=== PATIENT | male | born 1950 | race Hispanic/Latino ===

== ENCOUNTER → 2024-12-19 | Outpatient (CLI) | payer OTHER ==
[~2024-12-19] MED LIST: IOHEXOL 350 MG/ML 100ML INFUS..BTL IV ONE
--- NOTE | 2024-12-21 15:13 | CARDIOLOGY ---
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 A dedicated, limited window, coronary imaging protocol was used, with single breath-hold, retrospective ECG gating, and automated arrhythmia rejection. 100 cc of low osmolar contrast agent: Omnipaque 350 was delivered via a 18-gauge IV catheter in the right antecubital fossa, using a power injector and followed by 60 cc of normal saline bolus as a chaser. Collimated images were reformatted at 0.5 mm intervals, and sent to an offline independent workstation for interpretation, using 3D anatomic reconstructions: Curved multiplanar reconstructions, maximum intensity projections, and multiplanar imaging. No metoprolol was administered prior to scanning due to low baseline heart rate. 0.8 mg SL nitroglycerin was given. CORONARY ARTERY DESCRIPTIONS: The coronary arteries arise in normal position. Left main coronary artery: Normal caliber vessel that bifurcates into the LAD and LCx. No stenosis. Left anterior descending coronary artery: Normal caliber vessel and gives rise to diagonal and septal branches. There is calcified plaque in the proximal LAD with 20-30% stenosis. Left circumflex coronary artery: Normal caliber, nondominant and gives rise to a large OM branch. There is calcified plaque in the proximal LCx with 40-50% stenosis. Right coronary artery: Large, dominant vessel giving rise to the PL and PDA branches. No stenosis. CAD-RADs: 2-3, mild to moderate stenosis. Thoracic Aorta: Normal diameter. Dede Sánchez MD Cardiovascular Disease [facility] DEDE SÁNCHEZ MD Dec 21, 2024 15:13
== END | disposition home or self-care (01) ==
LOC: RAH 15:45
PROVIDERS: ATTEND Internal Medicine Cardiovascular Disease
DX: I25.10 Atherosclerotic heart disease of native coronary artery without angina pectoris (principal); R07.9 Chest pain, unspecified
CPT/HCPCS: 75574; Q9967

== ENCOUNTER → 2024-12-22 | Outpatient (CLI) | payer OTHER ==
[~2024-12-22] MED LIST changes: -IOHEXOL 350 MG/ML 100ML INFUS..BTL IV ONE; +IOHEXOL-350 75 ML VIAL IV ONE
--- NOTE | 2024-12-22 22:29 | HMCIMG ---
Name of the exam: CTA NECK WITHOUT AND WITH INTRAVENOUS CONTRAST Technique: Helical computed tomography angiography of the neck was performed before and after intravenous contrast with multiplanar reconstructions optimized for arterial evaluation. Dose metrics: CTDIvol 119.4 mGy; DLP 438.6 mGy???cm. Comparison: No prior examinations are available for comparison. Contrast: Standard dose of intravenous contrast administered. Findings: Aorta and arch origins: Proximal ascending aorta measures 33 mm. Mild atherosclerotic calcification of the aortic arch without aneurysm or dissection. Right carotid arteries: Mild atherosclerotic calcification at the carotid bulb producing approximately 10???15 percent luminal narrowing. The common carotid artery, extracranial internal carotid artery, and external carotid artery origin are patent without dissection or occlusion. Left carotid arteries: Mild atherosclerotic calcification at the carotid bulb producing less than 5 percent luminal narrowing. Common carotid artery, extracranial internal carotid artery, and external carotid artery origin are patent without dissection or occlusion. Vertebral arteries: Right vertebral artery is present with small caliber (hypoplastic configuration) without focal stenosis, dissection, or occlusion. Left vertebral artery is patent without focal stenosis, dissection, or occlusion. Other visualized neck structures: No acute osseous abnormality or neck soft-tissue mass identified on this angiographic study. Impression: * Mild atherosclerotic plaque at both carotid bulbs with estimated stenosis of approximately 10???15 percent on the right and less than 5 percent on the left???no hemodynamically significant carotid stenosis identified. Recommendation: Continue guideline-directed cardiovascular risk-factor modification; duplex carotid ultrasound follow-up in about 12 months can document stability, sooner if new neurologic symptoms occur. 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 Recommendation: No specific imaging follow-up required unless posterior circulation symptoms develop. * Mild aortic arch atherosclerosis with proximal ascending aorta measuring 33 mm and no aneurysm or dissection. Recommendation: Routine clinical risk management; no aortic imaging follow-up is required on the basis of current measurements. /Hawi
== END | disposition home or self-care (01) ==
LOC: RAH 07:25
PROVIDERS: ATTEND Internal Medicine Cardiovascular Disease
DX: I65.23 Occlusion and stenosis of bilateral carotid arteries (principal); R07.9 Chest pain, unspecified
CPT/HCPCS: 70498; Q9967